=== PATIENT | male | born 1960 | race Caucasian/White ===

== ENCOUNTER 2017-07-16 19:40 | Emergency (ER) | payer OTHER ==
[~2017-07-16] VITALS: Ht 170.2 cm; Wt 82.6 kg
[2017-07-16 19:55] VITALS: BP_SYST 115
[2017-07-16 22:20] VITALS: BP_SYST 103
== END 2017-07-16 22:20 | disposition home or self-care (01) ==
LOC: SED 19:40
DX: R07.89 Other chest pain (principal); I10 Essential (primary) hypertension; Z87.442 Personal history of urinary calculi
CPT/HCPCS: 71020-TC; 99284